=== PATIENT | female | born 1985 | race Two or more races ===

== ENCOUNTER 2021-10-15 01:59 | Emergency (ER) | payer MEDICAID ==
[~2021-10-15] VITALS: Ht 160 cm; Wt 88.0 kg
[2021-10-15 02:28] VITALS: BP 148/92
[2021-10-15] MEDS ORDERED: ACETAMINOPHEN 500MG TABLET PO ONE (03:00)
== END 2021-10-15 05:54 ==
LOC: ER 01:59
DX: M79.674 Pain in right toe(s) (principal); R51.9 Headache, unspecified
CPT/HCPCS: 71045; 73630; 99284